=== PATIENT | female | born 1960 | race African-American/Black ===

== ENCOUNTER → 2016-07-28 | Outpatient (CLI) | payer OTHER ==
[~2016-07-28] MED LIST: ATOR1TAB18 PO; GABA300C5 PO; IBUP800T23 PO; LEVO112T2 PO; LEVO137T2 PO; RANI150C PO; ROBA500T PO
[2016-07-28 13:21] LABS: POTASSIUM 4.1 MEQ/L (3.5-5.1)
== END ==
LOC: CLAB 12:29
PROVIDERS: ATTEND Family Medicine
DX: N28.9 Disorder of kidney and ureter, unspecified (principal)
CPT/HCPCS: 36415; 80048

== ENCOUNTER → 2016-08-11 | Outpatient (CLI) | payer OTHER ==
[2016-08-11 10:20] LABS: ALKALINE PHOSPHATASE 58 U/L (45-117); ALT (GPT) 19 U/L (10-53); ANION GAP 7 MEQ/L (5-15); AST (GOT) 25 U/L (15-37); BICARBONATE 28.3 MEQ/L (21.0-32.0); BLOOD UREA NITROGEN 19 MG/DL (7-18); CHLORIDE 106 MEQ/L (98-107); GLOMERULAR FILTRATION RATE 49 ML/MIN (>89); GLUCOSE,FASTING 70 MG/DL (74-99); HDL CHOLESTEROL 61.6 MG/DL (40.0-60.0); LDL CHOLESTEROL 108 MG/DL (0-99); SODIUM (NA) 141 MEQ/L (136-145); TOTAL BILIRUBIN ADULT 0.2 MG/DL (0.2-1.0)
[2016-08-11 10:21] LABS: POTASSIUM 4.5 MEQ/L (3.5-5.1)
[2016-08-11 10:22] LABS: AUTOMATED NEUTROPHIL # 5.9 TH/MM3 (1.8-7.7); BASOPHIL # 0.1 TH/MM3 (0-0.2); BASOPHIL % 1.1 % (0.0-2.0); EOSINOPHIL # 0.3 TH/MM3 (0-0.4); EOSINOPHIL % 3.3 % (0.0-4.0); HEMATOCRIT 38.4 % (35.0-46.0); HEMO FLAGS DIFF FINAL; LYMPH % 31.9 % (9.0-44.0); LYMPHOCYTE # 3.2 TH/MM3 (1.0-4.8); MEAN CELL VOLUME 97.4 FL (80.0-100.0); MEAN CORPUSCULAR HEMOGLOBIN 31.4 PG (27.0-34.0); MEAN CORPUSCULAR HGB CONC 32.2 % (32.0-36.0); MONO % 5.4 % (0.0-8.0); NEUT % 58.3 % (16.0-70.0); PLATELET COUNT 336 TH/MM3 (150-450); RED BLOOD COUNT 3.94 MIL/MM3 (4.00-5.30); RED CELL DISTRIBUTION WIDTH 13.8 % (11.6-17.2); WHITE BLOOD COUNT 10.2 TH/MM3 (4.0-11.0)
[2016-08-11 12:25] LABS: HEMOGLOBIN A1a 1.2 %; HEMOGLOBIN A1b 1.7 %; HEMOGLOBIN Ao 85.3 %; HEMOGLOBIN LA1C 1.9 %; HEMOGLOBIN P3 3.6 %
== END ==
LOC: CLAB 09:31
PROVIDERS: ATTEND Family Medicine
DX: E78.5 Hyperlipidemia, unspecified (principal); E03.9 Hypothyroidism, unspecified; M19.90 Unspecified osteoarthritis, unspecified site; N28.9 Disorder of kidney and ureter, unspecified; E66.9 Obesity, unspecified
CPT/HCPCS: 36415; 80053; 80061; 83036; 84443; 85025

== ENCOUNTER → 2016-10-14 | Outpatient (CLI) | payer OTHER | LOC: CLAB 10:13 | PROVIDERS: ATTEND Family Medicine | DX: E03.9 Hypothyroidism, unspecified (principal) | CPT/HCPCS: 36415; 84443 ==

== ENCOUNTER → 2017-02-07 | Outpatient (CLI) | payer OTHER ==
[~2017-02-07] MED LIST changes: -LEVO112T2 PO
[2017-02-07 12:49] LABS: BICARBONATE 26.5 MEQ/L (21.0-32.0); POTASSIUM 4.6 MEQ/L (3.5-5.1)
== END ==
LOC: CLAB 12:00
PROVIDERS: ATTEND Nurse Practitioner Family
DX: N28.9 Disorder of kidney and ureter, unspecified (principal)
CPT/HCPCS: 36415; 80048; 84443

== ENCOUNTER 2017-09-25 07:12 | Emergency (ER) | payer SELFPAY ==
[~2017-09-25] VITALS: Ht 162.6 cm; Wt 80.0 kg
[~2017-09-25 07:12] MED LIST changes: -ATOR1TAB18 PO; +ATOR80TA45 PO; +IBUP1TAB7 PO; -IBUP800T23 PO
[2017-09-25 07:15] VITALS: BP 126/68; PULSE 80; RESP 16; TEMP 98.5; O2SAT 98
[2017-09-25] MEDS ORDERED: GRIS1TAB PO (08:14)
--- NOTE | 2017-09-25 08:14 | PD ---
HPI Chief Complaint: Headache Time Seen by Provider: 07:39 Travel History International Travel<30 days: No Contact w/Intl Traveler<30days: No Traveled to known affect area: No History of Present Illness HPI 57-year-old female presents to the emergency department with complaint of a lump to her left lateral posterior head with several other lumps that she has noticed for the past 4 days. Denies fall or injury to her head. Denies fevers , vomiting. Reports nausea. Reports headache. Says the area is tender, but not painful. Denies itchiness. Denies new exposures to lotions, soaps, shampoos, conditioners, hair products, medications, foods, environmental exposures. Has not taken any medications or tried any treatments to alleviate her symptoms. No known aggravating or relieving factors. No others with similar symptoms. [facility]. No known allergies. History of hypothyroidism and RA. Has no other medical complaints. No other modifying factors or associated signs and symptoms. PFSH Past Medical History Arthritis: Yes High Cholesterol: Yes Diminished Hearing: No Immunizations Current: Yes Thyroid Disease: Yes Menopausal: Yes : 7 Para: 4 : 3 Tubal Ligation: Yes Past Surgical History Gynecologic Surgery: Yes (TUBAL) Social History Alcohol Use: No Tobacco Use: No Substance Use: Yes (occ marijuana) Allergies-Medications (Allergen,Severity, Reaction): Coded Allergies: No Known Allergies (Verified Adverse Reaction, Unknown, 09/25/17) Reported Meds & Prescriptions Reported Meds & Active Scripts Active Griseofulvin Microsize 500 Mg Tab 500 Mg PO DAILY 30 Days Robaxin (Methocarbamol) 500 Mg Tab 500 Mg PO TID Atorvastatin (Atorvastatin Calcium) 80 Mg Tab 80 Mg PO HS Ranitidine (Ranitidine HCl) 150 Mg Cap 150 Mg PO BID Gabapentin 300 Mg Cap 300 Mg PO TID Ibuprofen 800 Mg Tab 800 Mg PO Q8HR As needed every 8 hrs for joint pain Levothyroxine (Levothyroxine Sodium) 137 Mcg Tab 137 Mcg PO DAILY Review of Systems Except as stated in HPI: all other systems reviewed are Neg Physical Exam Narrative GENERAL: Well-nourished, well-developed black female patient, in no acute distress SKIN: Warm and dry. Left lateral scalp with areas of hair loss that are minimally edematous, without fluctuance or warmth to touch, without erythema; largest area measuring approx 3cm in diameter; smallest approx 1cm in diameter. No pointing or drainage. Tenderness on palpation. No surrounding lymphadenopathy. No signs of infectious process. No skin changes noted. HEAD: Atraumatic. Normocephalic. EYES: Pupils equal and round. No scleral icterus. No injection or drainage. EARS: Bilateral pinnae and external canals appear within normal limits. Bilateral tympanic membranes without erythema, dullness or perforation. ENT: Mucosa pink and moist. Airway patent. NECK: Trachea midline. CARDIOVASCULAR: Regular rate. RESPIRATORY: No accessory muscle use. GASTROINTESTINAL: Flat. MUSCULOSKELETAL: No obvious deformities. No clubbing. No cyanosis. No edema. NEUROLOGICAL: Awake and alert. Oriented 3. No obvious cranial nerve deficits. Motor grossly within normal limits. Normal speech. PSYCHIATRIC: Appropriate mood and affect; insight and judgment normal. Data Data Last Documented VS Vital Signs Date Time Temp Pulse Resp B/P (MAP) Pulse Ox O2 Delivery O2 Flow Rate FiO2 09/25/17 07:27 18 Room Air 09/25/17 07:15 98.5 80 126/68 (87) 98 Orders Orders Ibuprofen (Motrin) (09/25/17 08:15) Ed Discharge Order (09/25/17 08:14) [facility] Medical Decision Making Medical Screen Exam Complete: Yes Emergency Medical Condition: Yes Medical Record Reviewed: Yes Differential Diagnosis Tinea capitis, alopecia areata, less likely scalp abscess Narrative Course 57-year-old female with areas of alopecia to the left lateral scalp with associated minimal edema of the soft tissue that is nonfluctuant, non- erythematous, and without pointing or drainage. There are no signs of infectious process. The patient is afebrile and nontoxic-appearing. She denies fever, vomiting. Dr. Dobson evaluated the patient and we discussed the plan of care. Mandatory outpatient referral ordered for patient to see dermatology for follow-up. Griseofulvin prescribed for home. Ibuprofen administered in ER prior to discharge. Instructed patient to follow-up with studio model. Instructed patient to follow up with primary care provider. Patient verbalizes understanding and agreement with treatment plan. Patient is medically cleared and stable for discharge. Discussed reasons to return to the emergency department. Patient agrees with treatment plan. The patients vital signs are stable and the patient is stable for outpatient follow-up and treatment. Patient discharged home, stable and in no acute distress. Diagnosis Primary Impression: Alopecia Referrals: Distribution Engineering Technologist Primary Care Physician Patient Instructions: Alopecia (DC), General Instructions, Tinea Capitis (ED) Additional Instructions: Griseofulvin as prescribed Good hand hygiene to prevent spread of infection Do not share personal items such as clothing, towels, hairbrushes, or other personal items Follow-up with dermatology Follow-up with primary care provider Return to the emergency department immediately for worsening of symptoms Med/Other Pt SpecificInfo: Prescription(s) given Scripts Griseofulvin Microsize (Griseofulvin Microsize) 500 Mg Tab 500 MG PO DAILY for Infection for 30 Days, #30 TAB 0 Refills Prov: Lacy Perez 09/25/17 Disposition: 01 DISCHARGE HOME Condition: Stable Lacy Perez Sep 25, 2017 08:14
[2017-09-25] MEDS ORDERED: IBUPROFEN 800 MG TAB PO ONE (08:15)
== END 2017-09-25 08:25 | disposition home or self-care (01) ==
LOC: NEPD 07:12
DX: L65.9 Nonscarring hair loss, unspecified (principal); E03.9 Hypothyroidism, unspecified; E78.00 Pure hypercholesterolemia, unspecified; F12.90 Cannabis use, unspecified, uncomplicated
CPT/HCPCS: 99283